=== PATIENT | male | born 1950 | race Hispanic/Latino ===

== ENCOUNTER 2024-01-07 10:25 | Emergency (ER) | payer OTHER, MEDICARE ==
[~2024-01-07] VITALS: Ht 170.2 cm; Wt 72.1 kg
[2024-01-07] MEDS: Solu-medROL 125MG VIAL IM STA (11:12)
[2024-01-07] MEDS: ALBUTEROL 0.083% 2.5 MG/3 ML INH IH ONE (11:12)
[2024-01-07 11:16] VITALS: PULSE 92; RESP 18
[2024-01-07 11:33] LABS: RAPID GROUP A STREP negative (NEGATIVE)
[2024-01-07 11:42] LABS: INFLUENZA TYPE A Negative For Type A (NEGATIVE); INFLUENZA TYPE B Negative For Type B (NEGATIVE)
[2024-01-07 13:15] VITALS: BP 142/68; PULSE 88; RESP 20; O2SAT 98
[2024-01-07] MEDS ORDERED: METH4TAB3 PO (13:20)
[2024-01-07] MEDS ORDERED: BENZ-39 PO (13:20)
[2024-01-07] MEDS ORDERED: ALBUHFA IH (13:20)
== END 2024-01-07 13:52 | disposition home or self-care (01) ==
LOC: EDH 10:25
DX: J20.8 Acute bronchitis due to other specified organisms (principal); Z20.822 Contact with and (suspected) exposure to COVID-19; B97.89 Other viral agents as the cause of diseases classified elsewhere; I10 Essential (primary) hypertension; E78.00 Pure hypercholesterolemia, unspecified; Z87.891 Personal history of nicotine dependence
CPT/HCPCS: 99283; 71045; 87426; 87880; 87804 ×2; 96372; 94640; J2919

== ENCOUNTER 2024-03-03 22:13 | Inpatient (IN) | payer OTHER, MEDICARE ==
[~2024-03-03] VITALS: Ht 167.6 cm; Wt 68.5 kg
[~2024-03-03 22:13] MED LIST: ALBUHFA IH; ATOR20TA65 PO; BENZ-39 PO; LEVO750T68 PO; LISI40TA9 PO; METH4TAB3 PO; PRED20TA3 PO
[2024-03-03 22:30] LABS: BASOPHILS # (AUTO) 0.06 K/uL (0.00-0.20); BASOPHILS % (AUTO) 0.6 % (0.0-5.0); EOSINOPHILS # (AUTO) 0.81 K/uL (0.00-0.70); HEMATOCRIT 44.4 % (42-54); IMMATURE GRANULOCYTE ABSOLUTE 0.06 K/uL (0-1); LYMPHOCYTES # (AUTO) 2.7 K/uL (1.0-4.8); LYMPHOCYTES % (AUTO) 26.7 % (21.0-51.0); MEAN CORPUSCULAR HEMOGLOBIN 31.7 pg (27.0-33.0); MEAN CORPUSCULAR HGB CONC 33.6 g/dL (32.0-36.0); MEAN CORPUSCULAR VOLUME 94.5 fL (79-99); MONOCYTES # (AUTO) 0.8 K/uL (0.1-1.0); MONOCYTES % (AUTO) 7.8 % (3.0-13.0); NEUTROPHILS # (AUTO) 5.7 K/uL (1.8-7.7); NEUTROPHILS % (AUTO) 56.3 % (40.0-77.0); PLATELET COUNT (AUTO) 234 K/uL (130-400); WHITE BLOOD COUNT (AUTO) 10.1 K/uL (4.8-10.8)
[2024-03-03 22:46] LABS: CREATININE 0.8 mg/dL (0.5-1.3); POTASSIUM 3.7 mmol/L (3.5-5.1)
[2024-03-03] MEDS: IpraTROPium/alBUTERol SULFATE 3 ML SOLUTION IH SCH (22:51)
[2024-03-03] MEDS: Solu-medROL 125MG VIAL IVP ONE (22:53)
[2024-03-03 22:56] VITALS: PULSE 80; RESP 17
[2024-03-03 23:01] VITALS: PULSE 88; RESP 17
[2024-03-03] MEDS: MAGNESIUM 2GM PREMIX 50ML 50 ML IV SCH (23:48)
[2024-03-04] VITALS (17 sets, daily range): BP systolic 118–153; BP diastolic 69–87; PULSE 82–115; RESP 17–20; TEMP 98–98.6; O2SAT 94–98
[2024-03-04] MEDS: levoFLOXacin 750 MG/D5W 150 ML 150 ML IV ONE (00:21)
[2024-03-04] MEDS ORDERED: TEMAZepam 15 MG CAPSULE PO PRN (00:30)
[2024-03-04] MEDS ORDERED: doCUSate SODIUM 100 MG CAP PO PRN (00:30)
[2024-03-04] MEDS ORDERED: acetaMINOPHEN 650 MG SUPPOSITORY RC PRN (00:30)
[2024-03-04] MEDS ORDERED: LACTULOSE 20 GM/30 ML UDCUP PO PRN (00:30)
[2024-03-04] MEDS ORDERED: ondanSETRON 4MG INJ IVP PRN (00:30)
[2024-03-04] MEDS ORDERED: acetaMINOPHEN 325 MG TAB PO PRN (00:30)
[2024-03-04] MEDS ORDERED: hydrALAZine 20MG/ML VIAL IV PRN (00:30)
[2024-03-04 00:34] LABS: ABG BASE EXCESS -2.9 mmol/L (-2.0-3.0); ABG HCO3 21.3 mmol/L (21.0-28.0); ABG OXYGEN SATURATION 89.7 % (94.0-98.0); ABG PCO2 35 mmHg (35-48); ABG PH 7.398 (7.350-7.450); CARBON MONOXIDE 0.4 % (0.5-1.5); DEVICE COMMENT RR RN; HHb 10.2; PO2, ARTERIAL BG 59.3 mmHg (83.0-108.0); VENT MODE, BG RA (ROOM AIR)
[2024-03-04 00:40] LABS: ABG BASE EXCESS -3.4 mmol/L (-2.0-3.0); ABG HCO3 20.5 mmol/L (21.0-28.0); ABG OXYGEN SATURATION 94.8 % (94.0-98.0); ABG PCO2 34 mmHg (35-48); CARBON MONOXIDE 0.3 % (0.5-1.5); DEVICE COMMENT RR RN; HHb 5.2; PO2, ARTERIAL BG 71.6 mmHg (83.0-108.0); VENT MODE, BG RA (ROOM AIR)
[2024-03-04] MEDS: DOXYCYCLINE 100MG+NS 250ML 250 ML IV SCH (01:24)
[2024-03-04] MEDS ORDERED: OMEP40CA21 PO (02:23)
[2024-03-04] MEDS: IpraTROPium 0.5 MG/2.5 ML INH IH SCH ×2 (03:22→11:31)
[2024-03-04] MEDS: ALBUTEROL 0.083% 2.5 MG/3 ML INH IH SCH (03:22)
[2024-03-04] MEDS: INSULIN humuLIN R 100 UNIT/ML 3ML SQ SCH (06:04)
[2024-03-04] MEDS: Solu-medROL 125MG VIAL IVP SCH (06:25)
[2024-03-04] MEDS ORDERED: M.V.I. IV [ADULT] 10 ML, FOLic ACID 5 MG/ML VIAL 1 MG, THIAMINE HCL 100 MG in 0.9%NACL ... IV SCH (09:00)
[2024-03-04] MEDS: BENZONATATE 100 MG CAPSULE PO SCH (10:14)
[2024-03-04] MEDS: LISINOPRIL 40 MG TABLET PO SCH (10:15)
[2024-03-04] MEDS: PANTOPrazole 40 MG TAB DR PO SCH (10:15)
[2024-03-04] MEDS ORDERED: LORazepam 2 MG/ML 1 ML VIAL IVP PRN (11:00)
[2024-03-04] MEDS ORDERED: chlordiazePOXIDE HCL 25 MG CAP PO PRN (11:00)
[2024-03-04] MEDS ORDERED: PHARMACY COMMUNICATION MISC PRN (11:00)
[2024-03-04] MEDS: FOLic ACID 1 MG TABLET PO SCH (11:17)
[2024-03-04] MEDS: THIAMINE HCL 100 MG/ML 2ML VIAL IM ONE (11:17)
[2024-03-04 11:29] LABS: AMPHET/METH SCREEN,URINE NEGATIVE (NEGATIVE); BARBITURATE SCREEN, URINE NEGATIVE (NEGATIVE); BENZODIAZEPINES SCREEN,URINE NEGATIVE (NEGATIVE); CANNABINOID SCREEN,URINE NEGATIVE (NEGATIVE); COCAINE SCREEN,URINE NEGATIVE (NEGATIVE); OPIATE SCREEN,URINE NEGATIVE (NEGATIVE); PHENCYCLIDINE SCREEN,URINE NEGATIVE (NEGATIVE)
[2024-03-04 11:49] LABS: CREATININE 1.2 mg/dL (0.5-1.3); POTASSIUM 4.4 mmol/L (3.5-5.1)
[2024-03-04 12:09] LABS: INFLUENZA TYPE A Negative For Type A (NEGATIVE); INFLUENZA TYPE B Negative For Type B (NEGATIVE)
[2024-03-04] MEDS: BUDESONIDE 0.5 MG/2 ML INH IH SCH (18:50)
[2024-03-04] MEDS: atorVAStatin 20 MG TABLET PO SCH (20:33)
[2024-03-05 04:00] VITALS: BP 113/64; PULSE 86; RESP 17; TEMP 98
[2024-03-05 04:01] LABS: HEMATOCRIT 37.8 % (42-54); MEAN CORPUSCULAR HGB CONC 33.3 g/dL (32.0-36.0); MEAN CORPUSCULAR VOLUME 92.9 fL (79-99); RED BLOOD CELL COUNT(AUTO) 4.07 MIL/uL (4.50-6.20); RED CELL DISTRIBUTION WIDTH 14.5 % (11.0-15.5); WHITE BLOOD COUNT (AUTO) 17.6 K/uL (4.8-10.8)
[2024-03-05 04:08] LABS: CREATININE 0.9 mg/dL (0.5-1.3); MAGNESIUM 1.8 mg/dL (1.80-2.40); PHOSPHORUS 3.2 mg/dL (2.5-4.9); POTASSIUM 3.8 mmol/L (3.5-5.1)
[2024-03-05 07:40] VITALS: BP 122/72; PULSE 76; RESP 20; TEMP 97.6
[2024-03-05] MEDS: MULTIVITAMIN TABLET PO SCH (08:09)
[2024-03-05] MEDS: predniSONE 20 MG TABLET PO SCH (08:09)
[2024-03-05 08:20] VITALS: O2SAT 94
[2024-03-05 10:20] VITALS: PULSE 101; PULSE 88; RESP 20; RESP 22; O2SAT 92; O2SAT 95
[2024-03-05 11:00] VITALS: BP 128/70; PULSE 80; RESP 20; TEMP 98.8
[2024-03-05] MEDS ORDERED: MONT-46 PO (11:59)
[2024-03-05] MEDS ORDERED: MVIT PO (11:59)
[2024-03-05] MEDS ORDERED: PRED20B PO (11:59)
[2024-03-05] MEDS ORDERED: FOLI1 PO (11:59)
[2024-03-05] MEDS ORDERED: monteLUKAST sodIUM 10 MG TAB PO SCH (18:00)
== END 2024-03-05 14:49 | disposition home or self-care (01) | DRG 189 ==
LOC: EDH 22:13 → OBSVTOIN 03-04 00:09 → EDHIP 03-04 00:09 → 4AH 03-04 00:59
PROVIDERS: ADMIT Internal Medicine Critical Care Medicine; ATTEND Internal Medicine Critical Care Medicine
DX: J96.01 Acute respiratory failure with hypoxia (principal); J44.1 Chronic obstructive pulmonary disease with (acute) exacerbation; E87.1 Hypo-osmolality and hyponatremia; E87.6 Hypokalemia; F10.10 Alcohol abuse, uncomplicated; E87.8 Other disorders of electrolyte and fluid balance, not elsewhere classified; I10 Essential (primary) hypertension; F10.129 Alcohol abuse with intoxication, unspecified; E78.00 Pure hypercholesterolemia, unspecified; K59.00 Constipation, unspecified; Z87.891 Personal history of nicotine dependence; Z79.899 Other long term (current) drug therapy
CPT/HCPCS: 36415; 36600; 71045; 80048; 80305; 82140; 82435; 82803; 82947; 82948; 83605; 83735; 83880; 84100; 84132; 84295; 84484; 85018; 85025; 85027; 87426; 87804; 93005; 94640; 94664; 94760; 96365; 96375; G0378; J1956; J2919; J3411; J3475; J3490; A4600

== ENCOUNTER 2024-04-11 09:03 | Emergency (ER) | payer OTHER, MEDICARE ==
[~2024-04-11] VITALS: Ht 167.6 cm; Wt 68.9 kg
[~2024-04-11 09:03] MED LIST changes: +FOLI1 PO; -LEVO750T68 PO; -METH4TAB3 PO; +MONT-46 PO; +MVIT PO; +OMEP40CA21 PO; +PRED20B PO; -PRED20TA3 PO
[2024-04-11 09:08] VITALS: TEMP 98.8
--- NOTE | 2024-04-11 09:23 | EKG ---
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
--- NOTE | 2024-04-11 09:32 | ERN ---
ED Note History of Present Illness Stated Complaint: SOB Chief Complaint: Shortness of Breath Time Seen by MD: 09:09 Dictation: Patient is a 74-year-old male with past medical history of hypertension, hyperlipidemia, COPD came to the ED with a chief complaint of shortness of breaths since 1 week. Patient complained productive cough with a whitish sputum and shortness of breath since 1 week, last night he was not able to sleep. Patient denies chest pain, headaches, nausea, vomiting, swelling of feet. Allergies: Coded Allergies: No Known Drug Allergies (Unverified Allergy, Unknown, 01/07/24) Home Meds Active Scripts Amoxicillin/Potassium Clav (Amox Tr-K Clv 875-125 mg Tab) 875 Mg-125 Mg Tablet, 1 EACH PO DAILYBKFST for 7 Days, #7 TAB Prov:USMAN NEGRETE MD 04/11/24 Prednisone (Prednisone) 20 Mg Tablet, 40 MG PO DAILY for 5 Days, #5 TAB Prov:USMAN NEGRETE MD 04/11/24 Prednisone (Deltasone/Orasone [Bulk]) 20 Mg Tab, 20 MG PO DAILY, #7 TAB Prov:DANISH MAYER NP 03/05/24 Multivitamins,Therapeutic (Multivitamin Tablet) 400 Mcg Tab, 1 TAB PO DAILY, #30 TAB Prov:DANISH MAYER NP 03/05/24 Montelukast Sodium (Singulair 10Mg) 10 Mg Tab, 10 MG PO DAILY18, #30 TAB Prov:DANISH MAYER NP 03/05/24 Folic Acid (Folvite) 1 Mg Tab, 1 MG PO DAILY for 5 Days, #1 TAB Prov:DANISH MAYER NP 03/05/24 Benzonatate (Tessalon Perles) 100 Mg Cap, 200 MG PO TID for cough, #60 CAP 0 Refills Two capsules by mouth every8 hours as needed for cough Prov:ELISE VELÁZQUEZ NP 01/07/24 Albuterol Sulfate (Ventolin Hfa/Proventil Hfa/Proair Hfa) 90 Mcg Puff, 2 PUFF IH Q4H for WHEEZING, #1 INHALER 0 Refills Prov:ELISE VELÁZQUEZ NP 01/07/24 Reported Medications Omeprazole (Omeprazole) 40 Mg Capsule.dr, 1 CAP PO DAILY for 30 Days, #30 CAP 0 Refills 03/04/24 Atorvastatin Calcium (Atorvastatin Calcium) 20 Mg Tablet, 1 TAB PO HS 01/27/24 Lisinopril (Lisinopril) 40 Mg Tablet, 1 TAB PO DAILY 01/27/24 Past Medical History Past Medical History: High Cholesterol, Hypertension Surgical History: None Social History: ETOH Review of System Dictation Constitutional-no chills, weight loss/gain, fever Eyes-no injury, pain, redness and discharge ENT-no injury, pain, swelling Cardiovascular no chest pain, palpitations, edema Respiratory patient complains of shortness of breath, cough, wheezing Abdomen/GI-no abdominal pain, diarrhea, constipation, vomiting, nausea Back no injury and pain Genitourinary no injury, bleeding and discharge Musculoskeletal/extremities no injury, deformity Skin no rash, discoloration Neuro-no headache, weakness, numbness, tingling, seizures, tremors Psych-no suicidal ideation, homicidal ideation, hallucinations, depression, anxiety, memory loss Initial Vital Sign VS Vital Signs Date Time Temp Pulse Resp B/P (MAP) Pulse Ox O2 Delivery O2 Flow Rate FiO2 04/11/24 09:08 98.8 88 18 140/86 98 04/11/24 09:44 Room Air* 0 21 Physical Exam Dictation General-patient is awake alert and oriented Head/neck-normocephalic, atraumatic Eyes-PERRL, EOMI, vision at baseline Neck-trachea midline, supple, no nuchal rigidity Cardiovascular-RRR, normal S1/S2, no MRG is, no JVD Respiratory-inspiratory and expiratory wheezing heard equally on all lung areas Abdomen-no tenderness, guarding, soft, nondistended Skin warm, dry, normal turgor, no rash Musculoskeletal/extremities pulses equal, no cyanosis Neuro-COA X 4, GCS 15, strength 5/5, CN 2-12 intact Psych-normal behavior, mood and affect normal Results (Laboratory/Radiology) Laboratory/Radiology Laboratory Tests Test 04/11/24 09:33 White Blood Count 7.6 K/uL (4.8-10.8) Red Blood Count 4.47 MIL/uL (4.50-6.20) L Hemoglobin 14.4 g/dL (14.0-18.0) Hematocrit 41.5 % (42-54) L Mean Corpuscular Volume 92.8 fL (79-99) Mean Corpuscular Hemoglobin 32.2 pg (27.0-33.0) Mean Corpuscular Hemoglobin Concent 34.7 g/dL (32.0-36.0) Red Cell Distribution Width 13.9 % (11.0-15.5) Platelet Count 186 K/uL (130-400) Mean Platelet Volume 11.1 fL (7.5-10.5) H Immature Granulocyte % (Auto) 0.4 % (0-1) Neutrophils (%) (Auto) 60.4 % (40.0-77.0) Lymphocytes (%) (Auto) 17.9 % (21.0-51.0) L Monocytes (%) (Auto) 7.8 % (3.0-13.0) Eosinophils (%) (Auto) 12.7 % (0.0-8.0) H Basophils (%) (Auto) 0.8 % (0.0-5.0) Neutrophils # (Auto) 4.6 K/uL (1.8-7.7) Lymphocytes # (Auto) 1.4 K/uL (1.0-4.8) Monocytes # (Auto) 0.6 K/uL (0.1-1.0) Eosinophils # (Auto) 0.97 K/uL (0.00-0.70) H Basophils # (Auto) 0.06 K/uL (0.00-0.20) Absolute Immature Granulocyte (auto 0.03 K/uL (0-1) Nucleated Red Blood Cells 0.0 % (0.0-0.19) Sodium Level 138 mmol/L (136-145) Potassium Level 3.6 mmol/L (3.5-5.1) Chloride Level 103 mmol/L (101-111) Carbon Dioxide Level 32 mmol/L (21-32) Blood Urea Nitrogen 7 mg/dL (7-18) Creatinine 0.8 mg/dL (0.5-1.3) Glomerular Filtration Rate Calc 94 mL/min (>90) Random Glucose 109 mg/dL (70-105) H Total Calcium 8.9 mg/dL (8.5-10.1) Troponin I High Sensitivity 12 ng/L (4-75) B-Type Natriuretic Peptide 9 pg/mL (0-100) Influenza Type A Antigen Negative For Type A Influenza Type B Antigen Negative For Type B SARS-CoV-2 Antigen (Rapid) PRESUMPTIVE NEGATIVE Group A Streptococcus Rapid negative (NEGATIVE) ED Course ED Course Orders Procedure Category Date Status Time Cbc With Differential LAB 04/11/24 Complete 09:11 B-Type Natriuretic LAB 04/11/24 Complete Peptide 09:11 Chest 1vw RAD 04/11/24 Resulted 09:11 12 Lead Ekg Tracing- EKG 04/11/24 Complete Technical 09:11 Troponin I High LAB 04/11/24 Complete Sensitivity 09:11 Basic Metabolic Panel LAB 04/11/24 Complete 09:11 Covid19 (Sars Antigen LAB 04/11/24 Complete Rapid) 09:18 Influenza Type A & B, LAB 04/11/24 Complete Rapid 09:18 Rapid (Group A Strep) LAB 04/11/24 Complete 09:18 Ipratropium/Albuterol PHA 04/11/24 Complete Neb (Duoneb) 10:00 Prednisone 20mg Tab PHA 04/11/24 Complete (Deltasone/Orasone 2 10:00 Amox/Clav 875/125mg PHA 04/11/24 Complete Tab (Augmentin 875-1 10:00 Current Medications Medications (Trade) Dose Ordered Sig/[place] Route PRN Reason Start Time Stop Time Status Last Admin Dose Admin Albuterol (DUOneb) 1 UDVIAL ONCE ONCE IH 04/11/24 10:00 04/11/24 10:01 DC 04/11/24 10:08 Amoxicillin/ Clavulanate Potassium (Augmentin 875-125 Tablet) 1 each ONCE ONCE PO 04/11/24 10:00 04/11/24 10:01 DC 04/11/24 09:53 Prednisone (deltaSONE/ oraSONE 20MG TAB) 40 mg ONCE ONCE PO 04/11/24 10:00 04/11/24 10:01 DC 04/11/24 09:53 Vital Signs Date Time Temp Pulse Resp B/P (MAP) Pulse Ox O2 Delivery O2 Flow Rate FiO2 04/11/24 10:59 65 20 125/75 95 Room Air* 0 21 04/11/24 10:10 69 18 04/11/24 09:44 80 20 137/79 95 Room Air* 0 21 04/11/24 09:08 98.8 88 18 140/86 98 Medical Decision Making MDM INITIAL IMPRESSION Initial history and physical concerning for acute COPD exacerbation, chronic bronchitis Contributing medical problems: History of COPD, smoking I have reviewed the triage nursing notes and vital signs. Initial plan: Laboratory evaluation and x-ray DATA REVIEW I have reviewed additional NN, repeat VS, and monitoring where indicated. Heart rate, blood pressure, and O2 saturation are acceptable. ED COURSE Interventions: Nebulizer, Steroid and antibiotic therapy Reassessment: Patient is feeling better DISPOSITION Final diagnostic impression: COPD exacerbation I discussed my findings, clinical impression and treatment recommendations with the patient. I have reviewed the social factors contributing to the patient's presentation and disposition planning. My final plan for disposition was made based upon -mild risk of complications and potential morbidity of the patient's condition. -Discussion with the patient regarding management options. Patient will be discharged with medication DX & DISP Disposition: Discharge Departure Impression: Primary Impression: COPD exacerbation Condition: Stable Scripts Amoxicillin/Potassium Clav (Amox Tr-K Clv 875-125 mg Tab) 875 Mg-125 Mg Tablet 1 EACH PO DAILYBKFST for 7 Days, #7 TAB Prov: USMAN NEGRETE MD 04/11/24 Prednisone (Prednisone) 20 Mg Tablet 40 MG PO DAILY for 5 Days, #5 TAB Prov: USMAN NEGRETE MD 04/11/24 Additional Instructions: Come back to the ED if you have any acute or emergency symptoms Do not panic if you start to have one. Quick treatment may help you prevent serious breathing problems. If you have a COPD exacerbation plan that you developed with your doctor, follow it. Take your medicines exactly as your doctor tells you. Use your inhaler as directed by your doctor. If your symptoms do not get better after you use your medicine, have someone take you to the emergency room. Call an ambulance if necessary. With inhaled medicines, a spacer or a nebulizer may help you get more medicine to your lungs. Ask your doctor or pharmacist how to use them properly. Practice using the spacer in front of a mirror before you have an exacerbation. This may help you get the medicine into your lungs quickly. doctor has given you steroid pills, take them as directed. Do not smoke. This is the most important step you can take to prevent more damage to your lungs and prevent problems. If you already smoke, it is never too late to stop. If you need help quitting, talk to your doctor about stop-smoking programs and medicines. These may increase your chances of quitting for good. Referrals: KIKO SIMON MD (PCP) I have reviewed I have reviewed the case I have examined patient I performed a substantive portion of the visit. I have reviewed and personally made and approve the management plan that is documented in the notes by myself with CLAIRE/resident. I acknowledged full responsibility for the patient's management plan. USMAN NEGRETE MD Apr 11, 2024 09:32 FREDDY ALBERT DO Apr 11, 2024 12:43
[2024-04-11 09:41] LABS: BASOPHILS # (AUTO) 0.06 K/uL (0.00-0.20); BASOPHILS % (AUTO) 0.8 % (0.0-5.0); EOSINOPHILS # (AUTO) 0.97 K/uL (0.00-0.70); EOSINOPHILS % (AUTO) 12.7 % (0.0-8.0); HEMATOCRIT 41.5 % (42-54); IMMATURE GRANULOCYTE ABSOLUTE 0.03 K/uL (0-1); LYMPHOCYTES # (AUTO) 1.4 K/uL (1.0-4.8); LYMPHOCYTES % (AUTO) 17.9 % (21.0-51.0); MEAN CORPUSCULAR HEMOGLOBIN 32.2 pg (27.0-33.0); MEAN CORPUSCULAR HGB CONC 34.7 g/dL (32.0-36.0); MEAN CORPUSCULAR VOLUME 92.8 fL (79-99); MONOCYTES # (AUTO) 0.6 K/uL (0.1-1.0); MONOCYTES % (AUTO) 7.8 % (3.0-13.0); NEUTROPHILS # (AUTO) 4.6 K/uL (1.8-7.7); NEUTROPHILS % (AUTO) 60.4 % (40.0-77.0); PLATELET COUNT (AUTO) 186 K/uL (130-400); RED BLOOD CELL COUNT(AUTO) 4.47 MIL/uL (4.50-6.20); RED CELL DISTRIBUTION WIDTH 13.9 % (11.0-15.5); WHITE BLOOD COUNT (AUTO) 7.6 K/uL (4.8-10.8)
[2024-04-11 09:47] LABS: CREATININE 0.8 mg/dL (0.5-1.3); POTASSIUM 3.6 mmol/L (3.5-5.1)
--- NOTE | 2024-04-11 09:49 | HMCIMG ---
PORTABLE CHEST RADIOGRAPH INDICATION: h/o COPD, Shortness of breath COMPARISON: 03/03/2024 FINDINGS: Heart size is normal. The pulmonary vascularity and kathya appear normal. No abnormal pulmonary parenchymal opacity or consolidation identified. Hyperexpansion of the lungs and flattening of the diaphragms suggests an underlying chronic obstructive pulmonary airway disease process. No significant pleural effusion noted. No pneumothorax detected. IMPRESSION: Findings suggesting the presence of an underlying chronic obstructive pulmonary airway disease process without superimposed pneumonia.
[2024-04-11] MEDS ORDERED: AMOX1TAB16 PO (09:52)
[2024-04-11] MEDS ORDERED: PRED20TA3 PO (09:52)
[2024-04-11] MEDS: predniSONE 20 MG TABLET PO ONE (09:53)
[2024-04-11] MEDS: AMOX/CLAV 875/125MG TAB PO ONE (09:53)
[2024-04-11 10:01] LABS: RAPID GROUP A STREP negative (NEGATIVE)
[2024-04-11 10:05] LABS: B-TYPE NATRIURETIC PEPTIDE 9 pg/mL (0-100)
[2024-04-11] MEDS: IpraTROPium/alBUTERol SULFATE 3 ML SOLUTION IH ONE (10:08)
[2024-04-11 10:10] VITALS: PULSE 69; RESP 18
[2024-04-11 10:11] LABS: COVID19 (SARS ANTIGEN RAPID) PRESUMPTIVE NEGATIVE (NEGATIVE); INFLUENZA TYPE A Negative For Type A (NEGATIVE); INFLUENZA TYPE B Negative For Type B (NEGATIVE)
[2024-04-11 10:59] VITALS: BP 125/75; PULSE 65; RESP 20; O2SAT 95
== END 2024-04-11 11:07 | disposition home or self-care (01) ==
LOC: EDH 09:03
DX: J44.1 Chronic obstructive pulmonary disease with (acute) exacerbation (principal); E78.00 Pure hypercholesterolemia, unspecified; I10 Essential (primary) hypertension; Z20.822 Contact with and (suspected) exposure to COVID-19; Z79.52 Long term (current) use of systemic steroids; Z79.899 Other long term (current) drug therapy
CPT/HCPCS: 36415; 71045; 80048; 83880; 84484; 85025; 87426; 87804; 87880; 93005; 94640; 99284

== ENCOUNTER 2024-05-05 09:44 | Emergency (ER) | payer OTHER, MEDICARE ==
[~2024-05-05] VITALS: Ht 167.6 cm; Wt 72.3 kg
[~2024-05-05 09:44] MED LIST changes: +AMOX1TAB16 PO; +PRED20TA3 PO
[2024-05-05 10:04] LABS: BASOPHILS # (AUTO) 0.04 K/uL (0.00-0.20); BASOPHILS % (AUTO) 0.4 % (0.0-5.0); EOSINOPHILS # (AUTO) 0.53 K/uL (0.00-0.70); EOSINOPHILS % (AUTO) 4.9 % (0.0-8.0); IMMATURE GRANULOCYTE ABSOLUTE 0.08 K/uL (0-1); LYMPHOCYTES # (AUTO) 1.4 K/uL (1.0-4.8); LYMPHOCYTES % (AUTO) 13.1 % (21.0-51.0); MEAN CORPUSCULAR HEMOGLOBIN 31.8 pg (27.0-33.0); MEAN CORPUSCULAR HGB CONC 34.2 g/dL (32.0-36.0); MEAN CORPUSCULAR VOLUME 92.8 fL (79-99); MONOCYTES # (AUTO) 0.8 K/uL (0.1-1.0); MONOCYTES % (AUTO) 7.6 % (3.0-13.0); NEUTROPHILS # (AUTO) 7.9 K/uL (1.8-7.7); NEUTROPHILS % (AUTO) 73.3 % (40.0-77.0); PLATELET COUNT (AUTO) 192 K/uL (130-400); RED BLOOD CELL COUNT(AUTO) 4.85 MIL/uL (4.50-6.20); RED CELL DISTRIBUTION WIDTH 13.7 % (11.0-15.5); WHITE BLOOD COUNT (AUTO) 10.7 K/uL (4.8-10.8)
[2024-05-05 10:14] LABS: CREATININE 0.8 mg/dL (0.5-1.3)
--- NOTE | 2024-05-05 10:19 | HMCIMG ---
CHEST 1VW REASON: CHEST PAIN COMPARISON: 04/03/2024 FINDINGS: Single view of the chest was obtained. Lungs are clear. Heart size is normal. There is no pulmonary vascular congestion. Mediastinum and bony thorax appear unremarkable. IMPRESSION: 1. Normal single view chest x-ray.
[2024-05-05 10:29] LABS: B-TYPE NATRIURETIC PEPTIDE 6 pg/mL (0-100)
[2024-05-05] MEDS: ketOROlac 15MG/ML VIAL (15MG/ML) IV ONE (11:21)
[2024-05-05 11:30] LABS: APPEARANCE,URINE CLEAR (CLEAR); BILIRUBIN,URINE NEGATIVE (NEGATIVE); GLUCOSE, URINE (UA) NEGATIVE (NEGATIVE); KETONES,URINE NEGATIVE (NEGATIVE); LEUKOCYTE ESTERASE ,URINE NEGATIVE Leu/uL (NEGATIVE); NITRATE,URINE NEGATIVE (NEGATIVE); OCCULT BLOOD,URINE NEGATIVE (NEGATIVE); PROTEIN,URINE NEGATIVE (NEGATIVE); UROBILINOGEN,URINE 0.2 mg/dL (0.2-1.0)
[2024-05-05 11:31] LABS: ADD UA MICROSCOPIC NO; COLOR,URINE STRAW (YELLOW)
--- NOTE | 2024-05-05 11:47 | ERN ---
General Chief Complaint: Chest Wall Pain Stated Complaint: CHEST PAIN Time Seen by MD: 09:45 Source: patient History of Present Illness Initial Comments Patient is a 74-year-old male coming in to be evaluated for right-sided chest pain. Per patient began yesterday in his been getting worse. He also states that the pain is reproducible on palpation he states that when he presses on it he does feel pain. Allergies: Coded Allergies: No Known Drug Allergies (Unverified Allergy, Unknown, 01/07/24) Home Meds Active Scripts Amoxicillin/Potassium Clav (Amox Tr-K Clv 875-125 mg Tab) 875 Mg-125 Mg Tablet, 1 EACH PO DAILYBKFST for 7 Days, #7 TAB Prov:USMAN NEGRETE MD 04/11/24 Prednisone (Prednisone) 20 Mg Tablet, 40 MG PO DAILY for 5 Days, #5 TAB Prov:USMAN NEGRETE MD 04/11/24 Prednisone (Deltasone/Orasone [Bulk]) 20 Mg Tab, 20 MG PO DAILY, #7 TAB Prov:DANISH MAYER NP 03/05/24 Multivitamins,Therapeutic (Multivitamin Tablet) 400 Mcg Tab, 1 TAB PO DAILY, #30 TAB Prov:DANISH MAYER NP 03/05/24 Montelukast Sodium (Singulair 10Mg) 10 Mg Tab, 10 MG PO DAILY18, #30 TAB Prov:DANISH MAYER PEDIATRIC SPEECH LANGUAGE PATHOLOGIST 03/05/24 Folic Acid (Folvite) 1 Mg Tab, 1 MG PO DAILY for 5 Days, #1 TAB Prov:DANISH MAYER NP 03/05/24 Benzonatate (Tessalon Perles) 100 Mg Cap, 200 MG PO TID for cough, #60 CAP 0 Refills Two capsules by mouth every8 hours as needed for cough Prov:ELISE VELÁZQUEZ NP 01/07/24 Albuterol Sulfate (Ventolin Hfa/Proventil Hfa/Proair Hfa) 90 Mcg Puff, 2 PUFF IH Q4H for WHEEZING, #1 INHALER 0 Refills Prov:ELISE VELÁZQUEZ NP 01/07/24 Reported Medications Omeprazole (Omeprazole) 40 Mg Capsule.dr, 1 CAP PO DAILY for 30 Days, #30 CAP 0 Refills 03/04/24 Atorvastatin Calcium (Atorvastatin Calcium) 20 Mg Tablet, 1 TAB PO HS 01/27/24 Lisinopril (Lisinopril) 40 Mg Tablet, 1 TAB PO DAILY 01/27/24 Past Medical History Past Medical History: Bronchitis, High Cholesterol, Hypertension Past Surgical History: None Social History Social History: ETOH ROS Dictation CONSTITUTIONAL: No chills, no fever, no weakness, no diaphoresis, no malaise. HEAD/FACE: No signs of trauma. EENT: No eye pain, no blurred vision, no tearing, no double vision, no ear pain, no ear discharge, no nose pain, no nasal congestion, no throat pain, no throat swelling, no mouth pain. RESPIRATORY: No cough, no orthopnea, no SOB, no stridor, no wheezing. CARDIOVASCULAR: No chest pain, no edema, no palpitations, no syncope. GASTROINTESTINAL/ABDOMINAL: No abdominal pain, no constipation, no diarrhea, no nausea, no vomiting. GENITOURINARY: No abnormal discharge, no dysuria, no frequent urination, no hematuria. No complaints of pain in the genitals. MUSCULOSKELETAL: No back pain, no gout, no joint pain, no joint swelling, no muscle pain, no muscle stiffness, no neck pain. INTEGUMENTARY: No change in color, no change in hair/nails, no dryness, no lesion, no lumps, no rash. NEUROLOGICAL/PSYCH: No anxiety, not depressed, no emotional problem, no headache, no numbness, no pre-existing deficit, no history of seizures, no tremors, no weakness. HEMATOLOGIC/LYMPHATIC: Not anemic, no history of blood clots, no apparent bleeding, no bruising, glands not swollen. All Systems Negative, Except as Noted. Physical Exam Physical Exam Dictation VITAL SIGNS: Reviewed. GENERAL APPEARANCE: Alert, oriented x3, no acute distress, obese. HEAD AND FACE: Non-traumatic. EYES: PERRL, pink conjunctivas, eyelid no trauma, anterior chamber clear. EARS: Pinnas intact and no signs of trauma or erythema. Ear canals clear and no discharge. TMs no erythema. NOSE: No discharge, no bleeding. OROPHARYNX: Mouth normal, teeth no caries, tongue pink. Pharynx clear, no erythema. Tonsils no exudates, no abscesses noted. Mucous membrane moist. NECK: Supple, non-tender, no thyromegaly, no masses, no JVD, no bruits. BREAST: Deferred. CHEST: tenderness, no crepitus, no paradoxical movement, no retractions. LUNGS: Clear, well-ventilated, symmetric, no rales, no wheezing, no rhonchi, no stridor, good breath sounds bilaterally. HEART: Regular rate, regular rhythm, no murmur, no gallops. VASCULAR: No peripheral edema. ABDOMEN: Soft, positive bowel sounds, nondistended, no guarding, nontender, no rebound, no masses no hepatomegaly, no splenomegaly, no Davies's sign, no hernias. RECTAL: Deferred. GENITAL: Deferred. NEUROLOGICAL: Normal speech, gross motor function intact, gross sensory function intact. MUSCULOSKELETAL: Neck nontender, full range of motion, back nontender, full range of motion. EXTREMITIES: Nontender, full range of motion. SKIN: Color pink, dry, no turgor, no rash, no lacerations, no abrasions, no contusions. LYMPHATICS: Deferred. I Results Laboratory and Microbiology Lab and Micro Result Laboratory Tests Test 05/05/24 09:53 05/05/24 10:22 05/05/24 11:18 05/05/24 13:38 White Blood Count 10.7 K/uL (4.8-10.8) Red Blood Count 4.85 MIL/uL (4.50-6.20) Hemoglobin 15.4 g/dL (14.0-18.0) Hematocrit 45.0 % (42-54) Mean Corpuscular Volume 92.8 fL (79-99) Mean Corpuscular Hemoglobin 31.8 pg (27.0-33.0) Mean Corpuscular Hemoglobin Concent 34.2 g/dL (32.0-36.0) Red Cell Distribution Width 13.7 % (11.0-15.5) Platelet Count 192 K/uL (130-400) Mean Platelet Volume 10.3 fL (7.5-10.5) Immature Granulocyte % (Auto) 0.7 % (0-1) Neutrophils (%) (Auto) 73.3 % (40.0-77.0) Lymphocytes (%) (Auto) 13.1 % (21.0-51.0) L Monocytes (%) (Auto) 7.6 % (3.0-13.0) Eosinophils (%) (Auto) 4.9 % (0.0-8.0) Basophils (%) (Auto) 0.4 % (0.0-5.0) Neutrophils # (Auto) 7.9 K/uL (1.8-7.7) H Lymphocytes # (Auto) 1.4 K/uL (1.0-4.8) Monocytes # (Auto) 0.8 K/uL (0.1-1.0) Eosinophils # (Auto) 0.53 K/uL (0.00-0.70) Basophils # (Auto) 0.04 K/uL (0.00-0.20) Absolute Immature Granulocyte (auto 0.08 K/uL (0-1) Nucleated Red Blood Cells 0.0 % (0.0-0.19) Sodium Level 141 mmol/L (136-145) Potassium Level 4.0 mmol/L (3.5-5.1) Chloride Level 102 mmol/L (101-111) Carbon Dioxide Level 32 mmol/L (21-32) Blood Urea Nitrogen 5 mg/dL (7-18) L Creatinine 0.8 mg/dL (0.5-1.3) Glomerular Filtration Rate Calc 94 mL/min (>90) Random Glucose 116 mg/dL (70-105) H Total Calcium 9.2 mg/dL (8.5-10.1) Total Creatine Kinase 96 U/L (21-232) B-Type Natriuretic Peptide 6 pg/mL (0-100) Troponin I < 0.05 ng/mL (0.00-0.05) Urine Color STRAW (YELLOW) Urine Appearance CLEAR (CLEAR) Urine pH 6.0 (5.0-8.0) Urine Specific [place] 1.002 (1.001-1.031) Urine Protein NEGATIVE mg/dL (NEGATIVE) Urine Glucose (UA) NEGATIVE mg/dL (NEGATIVE) Urine Ketones NEGATIVE mg/dL (NEGATIVE) Urine Occult Blood NEGATIVE (NEGATIVE) Urine Nitrate NEGATIVE (NEGATIVE) Urine Bilirubin NEGATIVE mg/dL (NEGATIVE) Urine Urobilinogen 0.2 mg/dL (0.2-1.0) Urine Leukocyte Esterase NEGATIVE [place]/uL Troponin I High Sensitivity 13 ng/L (4-75) Labs Reviewed?: Yes EKG/XRAY/US/CT/MRI EKG Comment 05/05/2024 time 9:53 a.m. Ventricular rate 92 Sinus rhythm [place] [address] wave elevation or depression X-RAY Comment [address] [place] [address] IMAGING REPORT Signed PATIENT: SHAUN JIMENEZ MR#: [id number] : 1950 SEX: M AGE: 74 LOCATION: [facility] ORDER 5 STATUS: REG ER REPORT#: [id number] SERVICE REASON: CHEST PAIN ORDERING PHYSICIAN: ALISSON DREW MD PROCEDURE: CXR1VW - CHEST 1VW CHEST 1VW REASON: CHEST PAIN COMPARISON: 04/03/2024 FINDINGS: Single view of the chest was obtained. Lungs are clear. Heart size is normal. There is no pulmonary vascular congestion. Mediastinum and bony thorax appear unremarkable. IMPRESSION: 1. Normal single view chest x-ray. DICTATED BY: DENNIS POWELL MD DATE: 05/05/24 1016 ELECTRONICALLY SIGNED BY: DENNIS POWELL MD DATE: 05/05/24 1019 [facility] MDM: Differential diagnosis: Right-sided chest pain, Angina, NSTEMI, STEMI Patient is a 74-year-old gentleman coming in to be evaluated for right-sided chest pain. On physical exam the pain is reproducible on palpation. Patient also states that the pain is exacerbated with deep breathing. Patient received some IV Toradol cardiac workup negative for acute findings she states that the pain is significantly lower. Patient will be discharged with a diagnosis of chest wall pain, muscle strain. Patient will be discharged with anti- inflammatories I advised him appropriate follow up with the PCP in 1-2 days. ED Course Orders Procedure Category Date Status Time Vital Signs Per CPOE 05/05/24 Transmitted Routine 09:45 B-Type Natriuretic LAB 05/05/24 Complete Peptide 09:45 Chest 1vw RAD 05/05/24 Resulted 09:45 12 Lead Ekg Tracing- EKG 05/05/24 Logged Technical 09:45 Oxygen By Nc/Pulse Ox CPOE 05/05/24 Transmitted 09:45 Maintain Iv CPOE 05/05/24 Transmitted 09:45 Iv Insertion CPOE 05/05/24 Transmitted 09:45 Cardiac Monitoring CPOE 05/05/24 Transmitted 09:45 Pulse Oximetry With CPOE 05/05/24 Transmitted Vs And Prn 09:45 Cbc With Differential LAB 05/05/24 Complete 09:45 Activity: Br W/Brp CPOE 05/05/24 Transmitted With Assist 09:45 Creatine Kinase, Total LAB 05/05/24 Complete 09:45 Urinalysis Profile LAB 05/05/24 Complete 09:45 Troponin Poc Order LAB 05/05/24 Complete Only 09:45 Bedside Troponin-I LAB.ER 05/05/24 In Process (Poc) 09:45 Basic Metabolic Panel LAB 05/05/24 Complete 09:45 Troponin I High LAB 05/05/24 Complete Sensitivity 10:47 Ketorolac PHA 05/05/24 Complete Tromethamine 15mg/Ml 11:00 Dexamethasone 4mg/Ml PHA 05/05/24 Complete 1ml Vial (Dexametha 12:00 Current Medications Medications (Trade) Dose Ordered Sig/Milton Route PRN Reason Start Time Stop Time Status Last Admin Dose Admin Dexamethasone Sodium Phosphate (dexaMETHasone 4MG/ML 1ML VIAL) 4 mg ONCE ONCE IM 05/05/24 12:00 05/05/24 12:01 DC Ketorolac Tromethamine (toRADol) 15 mg ONCE ONCE IV 05/05/24 11:00 05/05/24 11:01 DC 05/05/24 11:21 Vital Signs Date Time Temp Pulse Resp B/P (MAP) Pulse Ox O2 Delivery O2 Flow Rate FiO2 05/05/24 13:39 97.5 75 16 140/86 99 Room Air* 0 05/05/24 12:00 78 16 150/81 99 Room Air* 0 05/05/24 09:45 98.6 96 16 173/96 98 Room Air* 0 05/05/24 09:45 98.6 96 16 173/96 98 Room Air 0 HEART Score Response (Comments) Value History: Low suspicion (0) 0 EKG: Normal 0 Age: > 65yrs (+2) 2 Risk Factors: No known risk factors (0) 0 Initial Troponin: Normal limit (0) 0 HEART Score Risk: Low Risk for MACE (1-3) Total 2 DX & DISP Disposition: Discharge Departure Impression: Primary Impression: Chest wall pain Condition: Stable Scripts Naproxen (Naproxen) 375 Mg Tablet 1 TAB PO BID for pain for 7 Days, #14 TAB 0 Refills with food Prov: ALISSON DREW MD 05/05/24 Additional Instructions: You have been reviewed in the emergency department at [facility] after presenting with chest pain. After considering your history, your risk factors, your EKG and your blood test troponins, have been found to be at very low risk less than (1 in 100) of having a major adverse cardiac event (like heart attack) in the near future. In the " low risk" group, the risks of doing further tests and treatment as the inpatient outweighs the benefits. In many patients in the low risk group for the test of any sort or unnecessary, however he should discuss this further with his general practitioner who will understand the medical and personal backgrounds better. Because we have never declared you" no risk" we would suggest. 1 returning for medical review if you have further episodes of chest pain/arm pain or other concerning symptoms like dizziness, collapse, palpitations or shortness of breath. 2. Following up with your local doctor who will consider the need for further testing and will also ensure that any modifiable risk factors you may have for heart disease are optimally managed. Patient will be discharged in stable condition at the moment discharge patient states , no chest pain Referrals: KIKO SIMON MD (PCP) Time of Disposition: 14:57 ALISSON DREW MD May 05, 2024 11:46
[2024-05-05] MEDS: dexaMETHasone SOD PHOSPHATE 4 MG/ML 1ML VIAL IM ONE (11:56)
[2024-05-05] MEDS ORDERED: NAPR-1192 PO (14:59)
[2024-05-05 15:00] VITALS: BP 146/76; PULSE 68; RESP 16; TEMP 98; O2SAT 99
--- NOTE | 2024-05-06 05:22 | EKG ---
[facility] Test Date: 2024-05-05 Test Time: 09:53:28 Pat Name: SHAUN JIMENEZ Department: ED Room: Gender: M Rn Heart: [id number] : 1950 Requested By: ALISSON DREW Order Number: [id number] Reading MD: Cristin Saxena Measurements Intervals [place] Rate: 92 P: 76 HI: 127 QRS: -19 QRSD: 94 T: 65 QT: 348 QTc: 431 Interpretive Statements Sinus rhythm Compared to ECG 04/11/2024 09:17:48 No significant changes Electronically Signed On 05-06-2024 18:10:59 PENSION ADMINISTRATOR by Cristin Saxena Please click the below link to view image of tracing.
== END 2024-05-05 15:14 | disposition home or self-care (01) ==
LOC: EDH 09:44
DX: R07.89 Other chest pain (principal); E78.00 Pure hypercholesterolemia, unspecified; I10 Essential (primary) hypertension; Z79.52 Long term (current) use of systemic steroids; Z79.899 Other long term (current) drug therapy
CPT/HCPCS: 99284; 71045; 82550; 84484 ×2; 80048; 83880; 85025; 81003; 36415; 96372; 93005; J1885; 99283; J1100